=== PATIENT | male | born 1995 | race Caucasian/White ===

== ENCOUNTER 2019-12-19 16:51 | Emergency (ER) | payer OTHER, SELFPAY ==
[2019-12-19 17:05] VITALS: BP 123/56; PULSE 78; RESP 16; TEMP 36.9; O2SAT 96; BMI 22.8
[2019-12-19 17:42] LABS: COVID19 -Nasal RAPID Negative (Negative)
[2019-12-19 17:48] VITALS: BMI 22.8
--- NOTE | 2019-12-19 18:30 | ED_ITS ---
HPI - URI/Sore Throat <CHYNA De Jesus - Last Filed: 12/19/19 23:12> General Chief Complaint: Upper Respiratory Symptoms Stated Complaint: COUGH HEADACHE SORE THROAT Time Seen by Provider: 12/19/19 18:00 Source: patient Mode of arrival: Ambulatory Limitations: no limitations History of Present Illness HPI Narrative: This is a 24-year-old male, nonsmoker, active-duty personnel presents to ED with chief complain of sneezing, runny nose, headache, nonproductive cough since yesterday. Patient denies fever, chills, nausea or vomiting. Patient denies diarrhea, abdominal pain, or loss of taste. Patient denies exposure to illness or known Covid illness. No recent travel. Patient is here for Covid test. Related Data Previous Rx's Medication Instructions Recorded [id number] 1 - 2 tab PO TID-QID PRN #20 tab 12/19/19 [Sudafed PE Head Congestion-Flu] Review of Systems <CHYNA De Jesus - Last Filed: 12/19/19 23:12> Review of Systems Narrative: General: Denies fever, chills, fatigue, malaise, sweats. HEENT: See HPI Respiratory: CHP Cardiovascular: Denies chest pain, palpitations, orthopnea, edema. Gastrointestinal: Denies nausea, vomiting, abdominal pain, diarrhea, constipation, melena. : Denies dysuria, frequency, incontinence, hematuria, urinary retention. Musculoskeletal: Denies weakness, joint pain or bony pain. Neurologic: Denies weakness, (+) headache, numbness, change in speech, confusion, seizures, incoordination. Patient History <CHYNA De Jesus - Last Filed: 12/19/19 23:12> Medical History No significant past medical history (Acute) Surgical History No pertinent past surgical history (Acute) Social History Smoking Status: Never smoker Smoking Status: Never smoker alcohol intake frequency: 0-2 drinks per day Substance Use Type: does not use Exam <Israel DannyMYCHALP - Last Filed: 12/19/19 23:12> Narrative Exam Narrative: General appearance: well developed, well nourished, in no acute distress. Head: normocephalic, atraumatic, no scalp lesions, non-tender. ENT: Bilateral auditory canals and tympanic membranes clear. Hearing grossly intact. Nose without bleeding, purulent discharge, septal hematoma or deviation. Nasal turbinate slightly erythematous and edematous. Mucous membrane moist, no mucosal lesion. Throat without erythema, tonsillar hypertrophy or exudate. Uvula in midline, airway patent. Neck/Thyroid: neck supple, full range of motion, no visible masses or meningeal signs. No JVD, non-tender without lymphadenopathy. Skin: no suspicious rashes, lesions over visible areas. Warm and dry and appropriate color for ethnicity. Heart: no clubbing, no cyanosis, no edema. S1 and S2 normal. RRR w/o murmurs, clicks, or bruits. Lungs: Breathing even and unlabored. No stridor. No accessory muscles used. Able to speak in full sentences. Chest: normal shape and expansion. Abdomen: non-obese, non-distended. Neurologic: alert and oriented. Cognitive exam, [employer] and PNS grossly intact on informal exam. Psych: good eye contact, normal affect. Initial Vital Signs Initial Vital Signs: Vital Signs Temperature 98.4 F 12/19/19 17:05 Pulse Rate 78 12/19/19 17:05 Respiratory Rate 16 12/19/19 17:05 Blood Pressure 123/56 L 12/19/19 17:05 Pulse Oximetry 96 12/19/19 17:05 <You Araiza DO - Last Filed: 12/20/19 07:43> Initial Vital Signs Initial Vital Signs: Vital Signs Temperature 98.4 F 12/19/19 17:05 Pulse Rate 78 12/19/19 17:05 Respiratory Rate 16 12/19/19 17:05 Blood Pressure 123/56 L 12/19/19 17:05 Pulse Oximetry 96 12/19/19 17:05 Scores <[facility] DannyMYCHALP - Last Filed: 12/19/19 23:12> GCS Sandra coma scale eye opening: Spontaneous Sandra coma scale verbal response: Orientated Sandra coma scale motor response: Obey commands [place] coma scale total score: 15 Course <Israel DelgadoMYCHALP - Last Filed: 12/19/19 23:12> Orders Ordered: ED Orders 12/19/19 17:11 COVID19 -ED/INPAT/OR/L&D Stat Vital Signs Vital signs: Vital Signs - 8 hr 12/19/19 17:05 Temperature 98.4 F Pulse Rate 78 Respiratory Rate 16 Blood Pressure 123/56 L Pulse Oximetry 96 <You Araiza DO - Last Filed: 12/20/19 07:43> Orders Ordered: ED Orders 12/19/19 17:11 COVID19 -ED/INPAT/OR/L&D Stat Vital Signs Vital signs: Vital Signs - 8 hr 12/19/19 17:05 Temperature 98.4 F Pulse Rate 78 Respiratory Rate 16 Blood Pressure 123/56 L Pulse Oximetry 96 MDM - URI/Sore Throat <Israel DelgadoMYCHALP - Last Filed: 12/19/19 23:12> Differential Diagnosis Differential diagnosis: Likely upper respiratory infection, influenza and other (Covid 19) Medical Records Attestation: I reviewed the patient's medical records. Lab Data Attestation: I reviewed the patient's lab results. 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 Covid test is negative. Patient does not have chronic medical conditions. Patient is afebrile with within normal vital signs. He appears to be nontoxic. Lung sounds are clear in all lobes without respiratory distress. Patient advised supportive care for symptoms management. Advised to take [id number] Tylenol or Motrin as needed for discomfort or to use guaifenesin/Sudafed products. Return precautions were discussed with patient and he verbalized understanding in agreement with treatment plan. <You Araiza DO - Last Filed: 12/20/19 07:43> Lab Data Labs: Lab Results 12/19/19 Range/Units 17:11 COVID-19 PCR Negative (Negative) Discharge Plan Departure Patient Disposition: Home Clinical Impression: Upper respiratory infection Qualifiers: URI type: unspecified URI Qualified Code(s): J06.9 - Acute upper respiratory infection, unspecified Discharge Date/Time: 12/19/19 18:31 Instructions: DI for Viral Upper Respiratory Infection -- Adult Activity Restrictions/Additional Instructions: You have been diagnosed with [upper respiratory infection. COvid test was negative]. What to do: *Take your medications as directed. Please hydrate well and rest. Keep social distance and wear mask. Please take the Rx medication as needed for your symptoms. *Follow up with your primary care provider in 2-3 days, call for an appointment. Let them know you were seen in the ED and that we asked you to be seen in follow up. *Return to ED if you have any new, worsening, or concerning symptoms, such as [chest pain, fever, unable to tolerate fluids, short of breath, or any acute concerns]. Prescriptions: New Sudafed PE Head Congestion-Flu [id number] mg tablet 1 - 2 tab PO TID-QID PRN (Reason: cold symptoms) Qty: 20 RF: 0 Referrals: [facility] [Outside] <You Araiza DO - Last Filed: 12/20/19 07:43> Cosign ED Attending Coskayleeature Attestation: I was immediately available in the department for consultation. This documentation has been reviewed and I agree with assessment and plan. Supervised by You Araiza DO
== END 2019-12-19 18:31 | disposition home or self-care (01) ==
PROVIDERS: Emergency Provider Nurse Practitioner Family
DX: J06.9 Acute upper respiratory infection, unspecified (principal); R05 Cough
CPT/HCPCS: 87635; 99281; 99282